=== PATIENT | male | born 1995 | race Caucasian/White ===

== ENCOUNTER 2021-03-25 00:48 | Emergency (ER) | payer MEDICAID, SELFPAY ==
[2021-03-25 00:51] VITALS: BP 142/89; PULSE 73; RESP 16; TEMP 36.3; O2SAT 95; BMI 32.5
--- NOTE | 2021-03-25 01:23 | EX.ED.VIS.UR ---
HPI HPI - URI History of Present Illness Chief Complaint: Sore Throat Narrative Narrative: Patient who denies significant past medical history presents with concern for exposure to COVID-19. He states that he was exposed on the , approximately 6 days ago. They did not find out they were positive until 2 days ago on the . He states today he began having a scratchy, sore throat and a slight cough. He denies any fever or chills. No body aches. No other symptoms. ROS ROS ED ROS Narrative Constitutional: No fever, no chills. HEENT: Positive scratchy, sore throat. No neck pain. No loss of vision. No rhinorrhea. Cardiovascular: No chest pain. No palpitations. No pedal edema. Respiratory: Slight cough, no shortness of breath. Abdominal: No abdominal pain. No nausea. No vomiting. Genitourinary: No dysuria. No hematuria. Musculoskeletal: No myalgias. No arthralgias. Neurologic: No headaches. No dizziness. No lightheadedness. Skin: No rash. No change in color. Psychiatric: No depression. No anxiety. PFSH PFSH Medical History no medical history Home Medications NK 03/25/21 [History Last Taken Unknown] Allergy/AdvReac Type Severity Reaction Status Date / Time Penicillins [PCN] Allergy NEEDS Verified 03/25/21 00:49 FOLLOW-UP Surgical History History of appendectomy History of cholecystectomy Social History Smoking Status: Never smoker EXAM Physical Exam Narrative Exam Narrative: Afebrile. Vital signs noted. HEENT: Normocephalic. Atraumatic. PERRL, EOMI. Neck soft and supple. No point tenderness or step off. Cardiovascular: Regular rate and rhythm. No murmurs, rubs, or gallops appreciated. Respiratory: No tachypnea. Lungs clear to auscultation bilaterally. Gastrointestinal: Abdomen soft, nontender, with normoactive bowel sounds. No rebound or guarding. Neurological: Awake. Alert. Nonfocal, nonlateralizing. Skin: No rash. Normal color. No pallor. Musculoskeletal: No pedal edema. Full range of motion extremities. Const Vital Signs: 03/25/21 00:51 Temperature 97.3 F L Temperature Source Temporal Pulse Rate 73 Respiratory Rate 16 Blood Pressure 142/89 H Blood Pressure Mean 106 Pulse Ox 95 Oxygen Delivery Method Room Air MDM MDM MDM Narrative Medical decision making narrative: Patient is afebrile here. His pulse ox is 95% on room air without evidence of hypoxia. He was swabbed for Covid as the only qualification for monoclonal antibodies is his BMI of 32.5 kg/m?. However, his Covid test, rapid, is negative. Treatment be symptomatic. He will take [id number] medications as needed. Disposition is discharged home in stable condition. Return instructions were reviewed. Discharge Plan Triage Chief Complaint: Sore Throat ED Provider: Blayne Guthrie Dx/Rx/DC Orders Clinical Impression: Sore throat, Encounter for laboratory testing for COVID-19 virus Instructions: ED Pharyngitis, Viral Prescriptions: No Action NK RF: 0 Primary Care Provider: Care Physician,No Primary Referrals: Care Physician,No Primary [Primary Care Provider] - Disposition Disposition: Home, Self Care
== END 2021-03-25 02:15 | disposition home or self-care (01) ==
PROVIDERS: Emergency Provider Emergency Medicine
DX: J02.9 Acute pharyngitis, unspecified (principal); Z20.822 Contact with and (suspected) exposure to COVID-19
CPT/HCPCS: 87426; 99282

== ENCOUNTER 2022-11-15 19:10 | Emergency (ER) | payer OTHER, MEDICAID, SELFPAY ==
[2022-11-15 19:10] VITALS: BP 124/91; PULSE 86; RESP 18; TEMP 36.7; O2SAT 97; BMI 34.9
--- NOTE | 2022-11-15 19:25 | RAD_ITS ---
EXAM: XR LEFT FINGERS, 2 OR MORE VIEWS CLINICAL INDICATION: injury TECHNIQUE: Frontal, lateral and oblique views of the fingers of the left hand. COMPARISON: No relevant prior studies available. FINDINGS: BONES/JOINTS: Oblique fracture through the distal portion of the third middle phalanx. There is also a soft tissue injury. Open fracture cannot be excluded. Preservation of the joint space. No sclerotic or destructive changes observed. SOFT TISSUES: Unremarkable. No soft tissue swelling or gas. No radiopaque foreign body. RAD/Finger(s) Min 2 Views IMPRESSION: Oblique fracture through the distal portion of the third middle phalanx. There is also a soft tissue injury. Open fracture cannot be excluded. Electronically Signed: Rodger Bautista MD at 19:42 EDT ,
--- NOTE | 2022-11-15 19:29 | EX.ED.UPPERE ---
HPI History of Present Illness Chief Complaint: Upper Extremity Injury Detail of Chief Complaint: Injury to left long finger Informant: patient Narrative Narrative: Patient presents with injury to left long finger. Patient states that he was swinging on a rope swing and went into the water and is not sure how he hurt his finger. Patient is left-hand dominant. He denies any other injuries. PFSH PFSH Medical History no medical history Home Medications NK 03/25/21 [History Last Taken Unknown] Allergy/AdvReac Type Severity Reaction Status Date / Time Penicillins [PCN] Allergy NEEDS Verified 11/15/22 19:13 FOLLOW-UP Surgical History History of appendectomy History of cholecystectomy Social History Smoking Status: Never smoker ROS ROS ED Review of Systems ROS Unobtainable: other Constitutional Constitutional ED: Reports lethargy; Denies chills, fever(s), sweats or weight loss Eyes Eyes: Denies blurry vision, change in vision or diplopia ENT ENT ED: Denies rhinorrhea or sore throat Cardiovascular Cardiovascular: Denies chest pain, orthopnea or racing heartbeat Respiratory/Chest Respiratory/Chest: Denies cough, dyspnea, dyspnea on exertion, orthopnea or sputum Gastrointestinal Gastrointestinal: Denies abdominal pain, diarrhea, nausea or vomiting Genitourinary Genitourinary ED: Denies dysuria, hematuria or urinary frequency Musculoskeletal Musculoskeletal: Reports other Details: Injury to left long finger ; Denies arthralgias, back pain, myalgias or neck pain Integumentary Denies abscess, Abrasions or rash Neurologic Neurologic: Denies headache(s) or weakness Psychiatric Psychiatric: Denies anxiety, depression or suicidal thoughts Endocrine Endocrinology: Denies polydipsia, polyphagia or polyuria Hematologic/Lymphatic Hematologic/Lymphatic: Denies easy bleeding, easy bruising or lymphadenopathy Allergic/Immunologic Allergic/Immunologic ED: Denies mouth swelling, tongue swelling or urticaria EXAM Physical Exam Const Vital Signs: 11/15/22 19:10 Temperature 98.1 F Temperature Source Temporal Pulse Rate 86 Respiratory Rate 18 Blood Pressure 124/91 H Blood Pressure Mean 102 Pulse Ox 97 Oxygen Delivery Method Room Air Positive well nourished and well developed General Appearance ED: well developed and NAD HEENT Reports TM's clear and moist mucous membranes normocephalic and atraumatic; Negative for trauma or tenderness Tympanic Membrane ED: Yes TM's clear Eyes PERRL and EOMs intact bilaterally General Eye ED: Negative for pale conjunctiva or scleral icterus Neck no lymphadenopathy, supple and no JVD General: Negative for tenderness Chest Wall inspection of chest normal and palpation of chest normal Chest: Negative for tenderness Resp normal respiratory effort and clear to auscultation bilaterally Effort and Inspection: Negative for respiratory distress or pain with movement Auscultation: Negative for rhonchi, wheezes or diminished lung sounds Cardio regular rate, regular rhythm, S1 normal heart sound, S2 normal heart sound and no murmurs Peripheral Pulses: pulses 2+ throughout GI normal to inspection, nondistended, normoactive bowel sounds, soft to palpation, non-tender, non-distended and no masses Back/Spine no CVA tenderness and no thoracic nor lumbar tenderness Extremity Extremity Narrative: Left long finger-patient has ecchymosis and bruising over the middle phalanx and proximal phalanx. There is no obvious deformity. He is neurovascular intact distally. Somewhat limited range of motion flexion extension secondary to pain and swelling. General Extremety ED: Negative for edema General Extremity: Negative for edema Neuro oriented x3, CN's II-XII intact bilaterally, no sensory deficits noted and gait normal Sensorium / Orientation: awake, alert, oriented to person, oriented to place and oriented to time Motor Exam: strength 5/5 throughout and strength abnormal Psych mental status grossly normal Skin no rashes or lesions noted and no wounds MDM MDM MDM Narrative Medical decision making narrative: Patient will be placed in an aluminum splint. He did not want anything for pain. He will be referred to orthopedics on-call. Radiography Diagnostic Testing: Three-view x-rays of the left long finger obtained interpreted by myself as fracture of the middle phalanx that is oblique with minimal displacement. Radiology in agreement. Discharge Plan Triage Chief Complaint: Upper Extremity Injury ED Provider: Cholo Preston Dx/Rx/DC Orders Clinical Impression: Fracture of phalanx of left middle finger Instructions: ED Fracture, Finger, Closed Prescriptions: No Action NK Primary Care Provider: Isiah Stern Referrals: Isiah Stern DO [Primary Care Provider] - Deondre Monte MD [Med Staff - Active Staff] - 3-5 Days Disposition Disposition: Home, Self Care
[2022-11-15 20:28] VITALS: RESP 18; O2SAT 96
== END 2022-11-15 20:28 | disposition home or self-care (01) ==
PROVIDERS: Emergency Provider Emergency Medicine; PCP Family Medicine; Visit Provider Emergency Medicine
DX: S62.623A Displaced fracture of middle phalanx of left middle finger, initial encounter for closed fracture (principal); X58.XXXA Exposure to other specified factors, initial encounter
CPT/HCPCS: 73140; 99283